=== PATIENT | female | born 1970 ===

== ENCOUNTER 2019-07-28 06:13 | Inpatient (IN) ==
[2019-07-26 12:29] LABS: Basophils # 0.1 10*3/uL (0.0-0.2); Basophils % 0.5 % (0.0-0.8); Eosinophils # 0.2 10*3/uL (0.0-0.87); Eosinophils % 2.2 % (0.00-10.9); Hematocrit 40.7 VOL% (35.7-47.0); Hemoglobin 13.3 GM/DL (12.0-16.0); Immature Granulocytes % 0.3 %; Immature Granulocytes Absolute 0.03 #; Lymphocytes # 3.8 10*3/uL (1.4-4.0); Lymphocytes % 35.2 % (21.3-54.2); Mean Corpuscular HGB Conc 32.7 GM/DL (32-36); Mean Corpuscular Volume 92.7 FL (87-102); Mean Platelet Volume 10.2 FL (9.6-12.0); Monocytes % 8.3 % (1.7-12.7); Neutrophils % 53.5 % (38.7-73.9); Platelet Count 244 T/CUMM (130-400); Red Blood Count 4.39 MC/CUMM (3.8-5.5); Red Cell Distribution Width 12.3 % (9.3-17.3); White Blood Count 10.7 T/CUMM (4-12)
[2019-07-26 13:12] LABS: Alanine Aminotransferase 39 U/L (13-56); Albumin 3.7 G/DL (3.4-5.0); Alkaline Phosphatase 122 U/L (45-117); Aspartate Amino Transferase 15 U/L (0-37); Bilirubin,Total < 0.39 MG/DL (0.2-1.0); Blood Urea Nitrogen 22 MG/DL (7-18); Calcium 8.7 MG/DL (8.5-10.1); Estimated Glom Filtration Rate 80 ML/MIN; Glucose 334 MG/DL (74-106); HDL Cholesterol 45 MG/DL (40-60); Osmolality,Calculated 290.7 MOS/KG (273-304); Risk Ratio 2.93; Total Protein 8.1 G/DL (6.4-8.3); Triglycerides 318 MG/DL (2-150); VLDL CHOLESTEROL 63.6 MG/DL
[2019-07-26 13:22] LABS: Apearance,Urine CLEAR (Clear); Bilirubin,Urine Negative (Negative); Blood, Urine Negative (Negative); Glucose,Urine (UA) >=500 mg/dL (Negative); Ketones,Urine 5 mg/dL (Negative); Mucus,Urine Occasional /LPF (Occasional); Nitrite,Urine Negative (Negative); Protein,Urine Negative; RBC,Urine 2 /HPF (0-4); Squamous Epithelial Cell,Urine Occasional /HPF (0-10); Urine Color Yellow (Yellow); Urine Specific Gravity 1.029 (1.001-1.035); Urine Urobilinogen < 2.0 EU/DL (0.2-1.0); WBC,Urine 1 /HPF (0-6)
[2019-07-26 13:56] LABS: HIV Antigen/Antibody Result Nonreactive (Nonreactive)
[~2019-07-28 06:13] MED LIST: ACETAMINOPHEN 500 MG TABLET PO ONE; AMPICILLIN/SULBACTAM 3,000 MG in SODIUM CHLORIDE 0.9% 100 ML IV ONE; DIAZEPAM 5 MG TABLET PO ONE; FAMOTIDINE 20 MG TABLET PO ONE
[2019-07-28] MEDS: LACTATED RINGERS 1,000 ML IV SCH ×2 (06:39→08:31)
[2019-07-28] MEDS ORDERED: BUPIVACAINE 0.5% 50 ML VIAL ONE (06:50)
[2019-07-28] MEDS ORDERED: LIDOCAINE 2% 5 ML VIAL ONE ×2 (06:50→09:20)
[2019-07-28] MEDS ORDERED: DEXAMETHASONE 4 MG/1 ML VIAL ONE ×2 (06:50→09:21)
[2019-07-28] MEDS ORDERED: FAMOTIDINE 20 MG TABLET ONE (06:58)
[2019-07-28] MEDS ORDERED: BISACODYL 10 MG SUPP RECTAL PRN (09:07)
[2019-07-28] MEDS ORDERED: BENZOCAINE/MENTHOL LOZENGE 18/BOX PO PRN (09:07)
[2019-07-28] MEDS ORDERED: MAGNESIUM HYDROXIDE SUSP 30 ML UDCUP PO PRN (09:07)
[2019-07-28] MEDS ORDERED: ONDANSETRON 4 MG/2 ML VIAL IV PRN ×2 (09:07→09:31)
[2019-07-28] MEDS ORDERED: ACETAMINOPHEN 325 MG TABLET PO PRN (09:07)
[2019-07-28] MEDS ORDERED: PROPOFOL 200 MG/20 ML VIAL IV ONE (09:20)
[2019-07-28] MEDS ORDERED: SEVOFLURANE 1 UNIT/15 MINUTE INH ONE (09:20)
[2019-07-28] MEDS ORDERED: MIDAZOLAM 2 MG/2 ML VIAL ONE (09:20)
[2019-07-28] MEDS ORDERED: fentaNYL 100 MCG/2 ML VIAL ONE (09:20)
[2019-07-28 09:21] LABS: Apearance,Urine CLEAR (Clear); Bacteria,Urine Occasional /HPF (Few); Bilirubin,Urine Negative (Negative); Blood, Urine Negative (Negative); Glucose,Urine (UA) >=500 mg/dL (Negative); Hyaline Casts,Urine 4 /LPF (0-3); Ketones,Urine Negative (Negative); Mucus,Urine Occasional /LPF (Occasional); Nitrite,Urine Negative (Negative); Protein,Urine Negative; RBC,Urine 2 /HPF (0-4); Squamous Epithelial Cell,Urine Occasional /HPF (0-10); Urine Color Yellow (Yellow); Urine Specific Gravity 1.022 (1.001-1.035); Urine Urobilinogen < 2.0 EU/DL (0.2-1.0); WBC,Urine <1 /HPF (0-6)
[2019-07-28] MEDS ORDERED: ROCURONIUM 100 MG/10 ML VIAL IV ONE (09:21)
[2019-07-28] MEDS ORDERED: NEOSTIGMINE 10 MG/10 ML VIAL ONE (09:21)
[2019-07-28] MEDS ORDERED: ONDANSETRON 4 MG/2 ML VIAL ONE ×2 (09:21→09:28)
[2019-07-28] MEDS ORDERED: LACTATED RINGERS 1,000 ML IV ONE (09:21)
[2019-07-28] MEDS ORDERED: GLYCOPYRROLATE 0.4 MG/2 ML VIAL ONE (09:21)
[2019-07-28] MEDS ORDERED: PHENYLEPHRINE 1 MG/10 ML SYRINGE IV ONE (09:21)
[2019-07-28] MEDS ORDERED: HYDROmorphone 2 MG/1 ML VIAL ONE (09:28)
[2019-07-28] MEDS: HYDROmorphone 2 MG/1 ML VIAL IV PRN ×2 (09:29→13:40)
[2019-07-28] MEDS ORDERED: LACTATED RINGERS 1,000 ML IV SCH (09:30)
[2019-07-28] MEDS ORDERED: INSULIN REGULAR 100 UNIT/ML SUBCUT ONE (12:36)
[2019-07-28] MEDS ORDERED: INSULIN REGULAR 100 UNIT/ML ONE (12:45)
[2019-07-28] MEDS ORDERED: GLUCAGON 1 MG VIAL IM PRN ×3 (13:00→23:16)
[2019-07-28] MEDS ORDERED: DEXTROSE 50% 25 GM/50 ML VIAL IV PRN ×3 (13:00→23:16)
[2019-07-28] MEDS: ceFAZolin 1,000 MG in SYRINGE 1 EACH IV SCH ×2 (14:55→22:56)
[2019-07-28 17:10] LABS: Basophils % 0.2 % (0.0-0.8); Hemoglobin 11.7 GM/DL (12.0-16.0); Immature Granulocytes % 0.6 %; Lymphocytes # 1.8 10*3/uL (1.4-4.0); Lymphocytes % 9.9 % (21.3-54.2); Mean Corpuscular HGB Conc 33.4 GM/DL (32-36); Mean Corpuscular Volume 91.1 FL (87-102); Mean Platelet Volume 9.9 FL (9.6-12.0); Monocytes % 4.4 % (1.7-12.7); Neutrophils % 84.9 % (38.7-73.9); Platelet Count 222 T/CUMM (130-400); Red Blood Count 3.84 MC/CUMM (3.8-5.5); Red Cell Distribution Width 12.1 % (9.3-17.3)
[2019-07-28] MEDS: INSULIN REGULAR 100 UNIT/ML SUBCUT SCH ×3 (18:12→18:29)
[2019-07-28] MEDS: IBUPROFEN 800 MG TABLET PO PRN (20:06)
[2019-07-28] MEDS: PHENYTOIN ER 100 MG CAPSULE PO SCH (20:54)
[2019-07-28] MEDS: TOPIRAMATE 200 MG TABLET PO SCH (22:16)
[2019-07-29] MEDS: INSULIN REGULAR 100 UNIT/ML SUBCUT SCH ×6 (00:10→21:35)
[2019-07-29] MEDS ORDERED: SIMETHICONE CHEW 80 MG TABLET PO PRN (00:55)
[2019-07-29] MEDS: oxyCODONE/ACETAMINOPHEN 5-325 MG TABLET PO PRN ×4 (01:09→19:37)
[2019-07-29 06:23] LABS: Basophils # 0.1 10*3/uL (0.0-0.2); Basophils % 0.5 % (0.0-0.8); Eosinophils # 0.1 10*3/uL (0.0-0.87); Eosinophils % 0.5 % (0.00-10.9); Hemoglobin 11.6 GM/DL (12.0-16.0); Immature Granulocytes % 0.3 %; Immature Granulocytes Absolute 0.04 #; Lymphocytes # 4.4 10*3/uL (1.4-4.0); Lymphocytes % 33.5 % (21.3-54.2); Mean Corpuscular HGB Conc 33.1 GM/DL (32-36); Mean Corpuscular Volume 92.3 FL (87-102); Mean Platelet Volume 9.9 FL (9.6-12.0); Neutrophils % 55.2 % (38.7-73.9); Platelet Count 217 T/CUMM (130-400); Red Blood Count 3.79 MC/CUMM (3.8-5.5); Red Cell Distribution Width 12.2 % (9.3-17.3); White Blood Count 13.1 T/CUMM (4-12)
[2019-07-29] MEDS: IBUPROFEN 800 MG TABLET PO PRN ×2 (06:42→14:26)
[2019-07-29] MEDS: METOCLOPRAMIDE 10 MG TABLET PO SCH ×2 (08:00→17:04)
[2019-07-29] MEDS: TOPIRAMATE 200 MG TABLET PO SCH ×2 (08:40→21:26)
[2019-07-29] MEDS: metFORMIN 500 MG TABLET PO SCH ×2 (08:40→17:04)
[2019-07-29] MEDS: MAGNESIUM HYDROXIDE SUSP 30 ML UDCUP PO SCH (08:41)
[2019-07-29] MEDS: DOCUSATE SODIUM 100 MG CAPSULE PO PRN (08:41)
[2019-07-29] MEDS: PHENYTOIN ER 100 MG CAPSULE PO SCH ×2 (08:41→21:25)
[2019-07-29] MEDS: GLIMEPIRIDE 4 MG TABLET PO SCH (09:43)
[2019-07-29] MEDS: LISINOPRIL 5 MG TABLET PO SCH (09:43)
[2019-07-29] MEDS ORDERED: GLIMEPIRIDE 2 MG TABLET PO SCH (18:00)
[2019-07-29] MEDS: SIMVASTATIN 20 MG TABLET PO SCH (21:26)
[2019-07-29] MEDS: METOPROLOL TARTRATE 50 MG TABLET PO SCH (21:26)
[2019-07-29] MEDS: INSULIN GLARGINE 100 UNIT/ML SUBCUT SCH (21:37)
[2019-07-30] MEDS: oxyCODONE/ACETAMINOPHEN 5-325 MG TABLET PO PRN ×3 (04:12→20:28)
[2019-07-30] MEDS: METOCLOPRAMIDE 10 MG TABLET PO SCH ×2 (04:50→07:23)
[2019-07-30] MEDS: MAGNESIUM HYDROXIDE SUSP 30 ML UDCUP PO SCH ×3 (06:43→21:47)
[2019-07-30] MEDS: INSULIN REGULAR 100 UNIT/ML SUBCUT SCH ×4 (08:00→21:59)
[2019-07-30] MEDS ORDERED: MAGNESIUM CITRATE 300 ML BOTTLE PO ONE (08:06)
[2019-07-30] MEDS: GLIMEPIRIDE 4 MG TABLET PO SCH (08:46)
[2019-07-30] MEDS: DOCUSATE SODIUM 100 MG CAPSULE PO PRN (08:46)
[2019-07-30] MEDS: metFORMIN 500 MG TABLET PO SCH ×2 (08:46→17:25)
[2019-07-30] MEDS: TOPIRAMATE 200 MG TABLET PO SCH ×2 (08:47→21:46)
[2019-07-30] MEDS: PANTOPRAZOLE 20 MG TABLET PO SCH (08:47)
[2019-07-30] MEDS: PHENYTOIN ER 100 MG CAPSULE PO SCH ×2 (08:48→21:43)
[2019-07-30] MEDS ORDERED: MAGNESIUM CITRATE 300 ML BOTTLE PO PRN (09:00)
[2019-07-30] MEDS ORDERED: SODIUM CHLORIDE 0.45% 1,000 ML IV SCH (10:30)
[2019-07-30] MEDS ORDERED: LORazepam 2 MG/1 ML VIAL IV PRN (10:39)
[2019-07-30] MEDS: METOPROLOL TARTRATE 50 MG TABLET PO SCH (15:41)
[2019-07-30] MEDS: INSULIN NPH 100 UNIT/ML SUBCUT SCH (17:42)
[2019-07-30] MEDS: OMEGA 3 ACID ETHYL ESTERS 1 GM CAPSULE PO SCH (21:45)
[2019-07-30] MEDS: SIMVASTATIN 20 MG TABLET PO SCH (21:47)
[2019-07-30] MEDS ORDERED: METOPROLOL TARTRATE 50 MG TABLET PO SCH (22:00)
[2019-07-30] MEDS: INSULIN GLARGINE 100 UNIT/ML SUBCUT SCH (22:47)
[2019-07-31 05:58] LABS: Basophils # 0.1 10*3/uL (0.0-0.2); Basophils % 0.5 % (0.0-0.8); Eosinophils # 0.3 10*3/uL (0.0-0.87); Eosinophils % 3.2 % (0.00-10.9); Hematocrit 32.1 VOL% (35.7-47.0); Hemoglobin 10.6 GM/DL (12.0-16.0); Immature Granulocytes % 0.4 %; Immature Granulocytes Absolute 0.04 #; Lymphocytes # 3.1 10*3/uL (1.4-4.0); Lymphocytes % 30.6 % (21.3-54.2); Mean Corpuscular Volume 92.8 FL (87-102); Mean Platelet Volume 10.2 FL (9.6-12.0); Monocytes % 8.3 % (1.7-12.7); Platelet Count 231 T/CUMM (130-400); Red Blood Count 3.46 MC/CUMM (3.8-5.5)
[2019-07-31 06:19] LABS: Albumin 2.8 G/DL (3.4-5.0); Bilirubin,Total 0.7 MG/DL (0.2-1.0); Calcium 8.2 MG/DL (8.5-10.1); Osmolality,Calculated 280.4 MOS/KG (273-304); Total Protein 6.5 G/DL (6.4-8.3)
[2019-07-31] MEDS: INSULIN REGULAR 100 UNIT/ML SUBCUT SCH (07:47)
[2019-07-31 08:15] VITALS: BP 131/68
[2019-07-31] MEDS: INSULIN NPH 100 UNIT/ML SUBCUT SCH (08:27)
[2019-07-31] MEDS: LISINOPRIL 5 MG TABLET PO SCH (08:37)
[2019-07-31] MEDS: metFORMIN 500 MG TABLET PO SCH (08:37)
[2019-07-31] MEDS: PHENYTOIN ER 100 MG CAPSULE PO SCH (08:38)
[2019-07-31] MEDS: OMEGA 3 ACID ETHYL ESTERS 1 GM CAPSULE PO SCH (08:38)
[2019-07-31] MEDS: PANTOPRAZOLE 20 MG TABLET PO SCH (08:38)
[2019-07-31] MEDS: DOCUSATE SODIUM 100 MG CAPSULE PO PRN (08:38)
[2019-07-31] MEDS: TOPIRAMATE 200 MG TABLET PO SCH (08:38)
[2019-07-31] MEDS: IBUPROFEN 800 MG TABLET PO PRN (11:43)
== END 2019-07-31 12:05 | disposition home or self-care (01) | DRG 743 ==
LOC: N.SDSINP 06:13 → N.OB 10:07
PROVIDERS: ADMIT Obstetrics & Gynecology; ATTEND Obstetrics & Gynecology